=== PATIENT | female | born 1955 | race Caucasian/White ===

== ENCOUNTER 2021-02-23 11:25 | Outpatient (REF) | payer OTHER, SELFPAY | END 2021-02-23 11:26 | disposition home or self-care (01) | LOC: HO.LAB 11:25 | PROVIDERS: Visit Provider Internal Medicine | DX: Z20.822 Contact with and (suspected) exposure to COVID-19 (principal) | CPT/HCPCS: C9803; U0003; U0005 ==

== ENCOUNTER 2022-09-07 15:27 | Outpatient (REF) | payer OTHER, SELFPAY ==
[2022-09-07 17:41] LABS: Vitamin B12 682 pg/mL (200-900)
== END 2022-09-07 15:28 | disposition home or self-care (01) ==
LOC: HO.LAB 15:27
PROVIDERS: Visit Provider Psychiatry & Neurology Neurology
DX: G31.84 Mild cognitive impairment of uncertain or unknown etiology (principal)
CPT/HCPCS: 36415; 82607

== ENCOUNTER 2025-04-07 09:06 | Outpatient (AMB) | payer OTHER, SELFPAY ==
[2025-04-07 09:13] VITALS: BMI 37.2
--- NOTE | 2025-04-07 09:13 | A.OFFVIS_ITS ---
VS Expanded 04/07/25 09:13 04/14/25 18:25 Height 5 ft 6 in 5 ft 6 in Weight 230 lb 9.656 oz 231 lb BMI 37.2 37.3 Intake Visit Reasons: Obesity Medication List - Last Reconciled 04/14/[address], LDN amlodipine 2.5 mg PO DAILY atorvastatin (Lipitor) 20 mg PO DAILY Nutrition Presentation Details: Pt presents for MNT for obesity with hx of predm Pt admits to choosing unhealthy foods , + soda no meal routine Pt verbalizes desires to improve diet Reports taking a daily MVI ABQ-Vmrbagh-Qr.Jeor Equation Height: 5 ft 6 in Weight: 231 lb Resting Metabolic Rate: 1579.26 Calculated Activity Level: Sedentary Calories Needed to Maintain Weight: 1895.11 Diagnosis As related to (etiology) #1: diagnosis As evidenced by (sign/symptom) #1: high BMI [facility] Medical History (Updated 04/14/25 @ 18:[address], LDN) Prediabetes Microhematuria Mild intermittent asthma Obstructive sleep apnea Osteopenia Assessment & Plan Assessment & Plan (1) Obesity (BMI 30-39.9): Code(s): E66.9 - Obesity, unspecified Category: Medical Plan: current wt: 105 kg ( 04/04 ) est kcal needs as per MSJ: 1900 est protein needs as per 1 g/kg BW: 105 est fluid needs as per 30 ml/kg BW: 3200 Recommended fiber > 12 g /day and gradually increase up to 25-28 g /day or as tolerated Nutrition topics discussed : Reviewed (R), Pt verbalized understanding (V) , not applicable (N/A) R, : Healthy Plate Method Concept: R, V, N/A: Carbohydrates: food sources of carbohydrates, relationship of carbohydrates to blood glucose, fatty liver GI health. Recommended total amount of carbohydrates per meals and snack. Differences between simple carbohydrates and complex carbohydrates R, V, N/A: Lean protein foods including vegan , vegetarian sources of protein. Benefits of protein (including but not limited to healing, nutritional value , benefits in weight loss, glucose control R, V, N/A: Fats : Source of fats, benefits of fats. Difference between saturated and unsaturated fats. Saturated fats and its contribution to inflammation R, V, N/A: Fiber: food sources and role of fiber in the diet (including but not limited to its role as a prebiotic, benefits in constipation, role in IBS , role in glucose control and cholesterol level) R, V, N/A: Hydration: role of hydration and prevention of dehydration or over hydration. Foods and water content. R, V, N/A: Vitamins and Minerals in foods and supplements R, V, N/A: Interpreting food labels, including serving size, macronutrients, vitamins, minerals, allergens, ingredient list , % daily value Patient Instructions: Gradually reduce on sugary beverages (see list of options of low sugar beverages) work on having 3 meals/day - see meals consisting of 60 g carb following healthy plate method Coding Level of Care Code Nutr Indiv Intake (08552) Diagnoses Obesity (BMI 30-39.9) E66.9 Time Spent (min) 30
--- OUTSIDE RECORDS SUMMARY | 2025-04-07 10:09 | XMS_ITS ---
Author Name [facility] Organization Unknown History of Medication Use Medication Directions Dispensed Refills Start Date End Date Stat us albuterol HFA (PROAIR HFA ; PROVENTIL HFA ; VENTOLIN HFA) 90 mcg/actuation inhaler Inhale 2 puffs by mouth 4 (four) times a day. 04/24/2024 active predniSONE (DELTASONE) 20 mg tablet Take 60 mg PO daily for 3 days, then take 40 mg PO daily for 3 days, then 20 mg PO daily for 3 days, then stop 04/24/2024 active acetaminophen (TYLENOL 8 HOUR) 650 mg 8 hr tablet Take 1 tablet (650 mg total) by mouth every 8 (eight) hours if needed. 12/25/2023 active ciprofloxacin (CIPRO) 500 MG tablet Take 1 tablet (500 mg total) by mouth 2 (two) times a day. 10/03/2023 active nitrofurantoin, macrocrystal-monohydr ate, (MACROBID) 100 MG capsule Take 1 capsule (100 mg total) by mouth 2 (two) times a day for 7 days. 09/27/2023 10/05/2023 active amLODIPine (NORVASC) 2.5 mg tablet Take 1 tablet (2.5 mg total) by mouth 1 (one) time each day. 08/31/2023 active atorvastatin (LIPITOR) 20 mg tablet Take 1 tablet (20 mg total) by mouth 1 (one) time each day. 08/31/2023 active PARoxetine (PAXIL) 20 mg tablet Take 1 tablet (20 mg total) by mouth 1 (one) time each day in the morning. 08/31/2023 active cyanocobalamin (VITAMIN B-12) 1,000 mcg tablet Take 1 tablet (1,000 mcg total) by mouth 1 (one) time each day. 06/27/2023 active erythromycin-benzoyl peroxide (BENZAMYCIN) gel Apply sparingly once or twice daily to affected areas on face as needed 03/14/2023 active tiZANidine (ZANAFLEX) 4 mg tablet Take by mouth. Take 1 Tablet by mouth at bedtime as needed for Muscle spasms active UNABLE TO FIND Administer into affected nostril(s). active Allergies Allergen Reaction Severity Comment Documented Date Source Statu s TRAMADOL ITCHING 10/12/2023 [facility] active Problems Problem Status Onset Date Problem Type Date of Resolution Source Urinary tract infection with hematuria, site unspecified active EncounterDiagnosisAct CTTHNE MG Retention of urine active EncounterDiagnosisAct CTTHNEMG Post-operative state active EncounterDiagnosisA ct CTTHNEMG Prediabetes active 2022-06-15 ProblemAct CT_THS ALYCIA Frequent UTI active 2022-04-27 ProblemAct [facility]_TH SFRAN Anxiety active 2023-11-07 ProblemAct [facility]_THSFR AN Mild intermittent asthma without complication active 2015-08-03 ProblemAct [facility]SFR[facility] Osteopenia active 2023-03-22 ProblemAct [facility]_THSF RAN Benign head tremor active 2019-07-03 ProblemAct [facility] Dermatochalasis of both upper eyelids active 2019-03-10 ProblemAct [facility]_THSFRA N Encounter for screening mammogram for breast cancer active EncounterDiagnosisAct C T_THSFRAN Heartburn active 2023-11-07 ProblemAct [facility]_THSFR AN Obesity (BMI 30.0-34.9) active 2017-05-28 ProblemAct [facility] Intertrigo active 2017-05-28 ProblemAct [facility]_THSF RAN GERD (gastroesophageal reflux disease) active 2007-07-16 ProblemAct [facility] Facial rhytids active 2019-03-10 ProblemAct [facility]_ THSFRAN Mass of right axilla active 2022-04-27 ProblemAct [facility]SFRAN Obstructive sleep apnea syndrome active 2017-12-27 ProblemAct [facility]_THS[facility]AN Microhematuria active 2011-04-25 ProblemAct [facility]_ THSFRAN Facial aging active 2019-03-12 ProblemAct [facility]_TH SFRAN Fear of high places active 2008-06-30 ProblemAct [facility]_THSFRAN Depression active 2009-04-13 ProblemAct [facility]_THSF RAN Macromastia active 2017-05-28 ProblemAct CT_THS ALYCIA Hypertension active 2023-11-07 ProblemAct [facility]_TH SFRAN Morbid obesity active 2023-11-07 ProblemAct [facility]_ THSFRAN History of COVID-19 active 2021-11-10 ProblemAct [facility]_THSFRAN Urinary incontinence, mixed active 2011-04-22 ProblemAct [facility]_SFRAN Ureterolithiasis active 2019-08-29 ProblemAct C T_THSFRAN Immunizations Vaccine Date Source Lot Number Status Influenza trivalent, 0.5mL ( Fluzone High-dose) 65yo and older 03/14/2023 [facility]_SFRAN [id number] comple amish Pneumococcal polysaccharide 23 valent (Pneumovax 23) 2yo and older 09/12/2022 [facility]ileyFRTAMIE [id number] com pleted Influenza Quadravalent, MDCK , 0.5ml, preservative free (Flucelvax) 6mo and older 06/14/2022 [facility]_BaileyFRTAMIE [id number] completed Influenza trivalent, 0.5mL ( Fluzone High-dose) 65yo and older 03/21/2021 CT_BaileyFRAN [id number] comple amish Influenza trivalent, 0.5mL ( Fluzone High-dose) 65yo and older 03/19/2020 [facility]ileyFRTAMIE [id number] comple amish Influenza trivalent, 0.5mL ( Fluzone High-dose) 65yo and older 03/28/2019 [facility]ileyFRTAM[facility] [id number] comple amish Pneumococcal conjugate 13 va lent (Prevnar 13, PCV13) 2mo and older 10/24/2018 [facility]_SIVA [id number] complet ed Td Tetanus diptheria (Tdvax) 7yo and older 04/03/2018 CT_T HSFRAN [id number] completed Influenza Quadravalent, MDCK , 0.5ml, with preservative (Flucelvax) 6mo and older 02/19/2018 [facility]_BaileyFRAN [id number] completed Influenza trivalent, with pr eservative (Fluzone; Afluria) 6mo and older 06/29/2016 [facility]ileyFRTAM[facility] [id number] completed Influenza trivalent, with pr eservative (Fluzone; Afluria) 6mo and older 04/12/2015 [facility]_S[facility] [id number] completed Influenza trivalent, with pr eservative (Fluzone; Afluria) 6mo and older 03/27/2014 [facility] [id number] completed Influenza trivalent, with pr eservative (Fluzone; Afluria) 6mo and older 07/03/2013 [facility] [id number] completed Influenza trivalent, 0.5mL, preservative free (Fluarix; FluLaval; Fluzone) ages 6mo and older (Afluria) 3 years and older 07/02/2012 [facility] [id number] completed Influenza trivalent, with pr eservative (Fluzone; Afluria) 6mo and older 06/16/2010 [facility] [id number] completed Pneumococcal polysaccharide 23 valent (Pneumovax 23) 2yo and older 06/16/2010 [facility]_S[facility]A [id number] com pleted Tdap Tetanus diptheria acell ular pertussis (Boostrix; Adacel) 7yo and older 04/09/2008 [facility] [id number] completed Influenza trivalent, with pr eservative (Fluzone; Afluria) 6mo and older 03/03/2008 [facility] [id number] completed
--- OUTSIDE RECORDS SUMMARY | 2025-04-07 10:09 | XMS_ITS | Clinical Summary ---
Author Organization [facility] [address] [place] [address] Address [address] [place] [address] Phone Care Team Providers Care Senior Catering Sales Manager Name Role Phone Geni Arreola MD Primary Care Prov ider Allergies Active Allergy Reactions Criticality Noted Date Comments Tramadol Itching Low 10/12/2023 Medications UNABLE TO FIND Administer into affected nostril(s). Active albuterol HFA (PROAIR HFA ; PROVENTIL HFA ; VENTOLIN HFA) 90 mcg/actuation inhaler Inhale 2 puffs by mouth 4 (four) times a day. 8.5 g 1 4 Active estradioL (ESTRACE) 0.01 % (0.1 mg/gram) vaginal creamIndications :atrophic vaginitis associated with menopause Apply a pea-sized amount of cream with the applicator into the vaginal canal every night for 2 weeks, then twice a week thereafter. 42.5 g 5 5 Active budesonide-formo teroL (Symbicort) 160-4.5 mcg/actuation inhalerIndicatio ns:Moderate persistent asthma, unspecified whether complicated Inhale 2 puffs by mouth 2 (two) times a day. Rinse mouth with water after use to reduce aftertaste and incidence of candidiasis. Do not swallow. 3 each 3 5 09/13/19 26 Active scopolamine (TRANSDERM-SCOP) 1 mg over 3 days patch 3 day Apply 1 patch topically every 3rd (third) day if needed (nausea). 6 patch 1 5 Active ibuprofen (ADVIL,MOTRIN) 600 mg tablet Take 1 tablet (600 mg total) by mouth every 8 (eight) hours if needed for mild pain. 45 tablet 5 Active cyclobenzaprine (FLEXERIL) 5 mg tablet Take 1 tablet (5 mg total) by mouth 3 (three) times a day if needed for muscle spasms. 30 tablet 5 Active erythromycin-tasia zoyl peroxide (BENZAMYCIN) gel Apply topically 2 (two) times a day. 23.3 g 3 5 Active amLODIPine (NORVASC) 2.5 mg tablet Take 1 tablet (2.5 mg total) by mouth 1 (one) time each day. 90 tablet 1 5 08/13/19 26 Active atorvastatin (LIPITOR) 20 mg tablet Take 1 tablet (20 mg total) by mouth 1 (one) time each day. 90 tablet 1 5 Active PARoxetine (PAXIL) 30 mg tablet Take 1 tablet (30 mg total) by mouth 1 (one) time each day in the morning. 90 each 1 5 08/13/19 26 Active tirzepatide, weight loss, (Zepbound) 2.5 mg/0.5 mL solutionIndicati ons:Obesity (BMI 30-39.9),Obstruc tive sleep apnea syndrome,Essenti al hypertension, benign,Mixed hyperlipidemia,P rediabetes Inject 2.5 mg under the skin 1 (one) time per week. 2 mL 1 5 Active Active Problems Problem Noted Date Diagnosed Date Anxiety 11/07/2023 Heartburn 11/07/2023 Hypertension 11/07/2023 Morbid obesity (CMS/HCC V24, CMS/HCC V28) 2023 Assessment & Plan (03/25/2025 10:48 AM EDT): BMI 37.6, with multiple comorbidities, HTN, HLD, DARRION, prediabetes. Attempts to lose weight previously have proven some success but weight was regained. Her diet reflects high calorie dense foods along the day. We discussed about the obesity as a chronic condition that needs multifactorial management. Medications will be needed half-way. Patient understands this. Will place a referral for nutrition services and for support. A prescription was sent for Zepbound 2.5mg weekly. Possible side effects were discussed today. Will follow up one month after starting the medication. Orders: Ambulatory referral to Nutrition Services; Future Ambulatory referral to Talkiatry; Future tirzepatide, weight loss, (Zepbound) 2.5 mg/0.5 mL solution; Inject 2.5 mg under the skin 1 (one) time per week. Osteopenia 03/22/2023 Prediabetes 06/15/2022 Assessment & Plan (03/27/2025 9:01 PM EDT): Last A1C: 6. Glucose 102. Orders: tirzepatide, weight loss, (Zepbound) 2.5 mg/0.5 mL solution; Inject 2.5 mg under the skin 1 (one) time per week. Frequent UTI 04/27/2022 Overview (03/21/2024): Last Assessment & Plan: Referred to Urology. She was informed that she should hear back in 1-2 weeks with an appointment date. If not, she should call back to our office and inquire on getting this arranged. She voiced understanding and agreed. Mass of right axilla 04/27/2022 Overview (03/21/2024): Last Assessment & Plan: Referred to G Surgery. She was informed that she should hear back in 1-2 weeks with an appointment date. If not, she should call back to our office and inquire on getting this arranged. She voiced understanding and agreed. History of COVID-19 11/10/2021 Overview (03/21/2024): DX PCR Test 11/07/21 Ureterolithiasis 08/29/2019 Overview (03/21/2024): 08/2019 - R distal ureteral calculus causing hydronephrosis Benign head tremor 07/03/2019 Facial aging 03/12/2019 Dermatochalasis of both upper eyelids 03/10/2019 Facial rhytids 03/10/2019 Obstructive sleep apnea syndrome 12/27/2017 Assessment & Plan (03/27/2025 9:01 PM EDT): DARRION on a CPAP. Will continue to monitor. Orders: tirzepatide, weight loss, (Zepbound) 2.5 mg/0.5 mL solution; Inject 2.5 mg under the skin 1 (one) time per week. Intertrigo 05/28/2017 Macromastia 05/28/2017 Obesity (BMI 30.0-34.9) 05/28/2017 Overview (03/21/2024): s/p gastric sleeve 01/21/18 Mild intermittent asthma without complication Microhematuria 04/25/2011 Urinary incontinence, mixed 04/22/2011 Overview (03/21/2024): [facility] Depression 04/13/2009 Fear of high places 06/30/2008 Essential hypertension, benign 07/16/2007 Assessment & Plan (03/27/2025 9:01 PM EDT): Hypertension is well-controlled on Amlodipine, will continue same medication. Orders: tirzepatide, weight loss, (Zepbound) 2.5 mg/0.5 mL solution; Inject 2.5 mg under the skin 1 (one) time per week. Assessment & Plan (02/15/2025 11:22 AM EDT): HTN is well controlled on Amlodipine. Continue same medication. Statin for ASCVD risk control GERD (gastroesophageal reflux disease) 8 Overview (03/21/2024): Saw Dr Hailey cash neg EGD and colo Encounters Date Type Department Care Team Description 04/03/2025 Telephone Adult Medicine [address] [phone] Geni Montes MD 03/25/2025 10:00 AM EDT Office Visit Adult Medicine [address] [phone] Geni Montes MD Obesity (BMI 30-39.9) (Primary Dx); Obstructive sleep apnea syndrome; Essential hypertension, benign; Mixed hyperlipidemia; Prediabetes; Metabolic syndrome; Need for prophylactic vaccination and inoculation against influenza 02/18/2025 Telephone Adult Medicine [address] [phone] Geni Montes MD 02/13/2025 2:00 PM EDT Office Visit Adult [address] [phone] Geni Montes MD Adult general medical examination (Primary Dx); Encounter for screening mammogram for malignant neoplasm of breast; Encounter for lipid screening for cardiovascular disease; Screen for colon cancer; Essential hypertension, benign from Last 3 Months Immunizations Immunization Administration Dates Next Due Influenza Quadravalent, MDCK , 0.5ml, preservative free (Flucelvax) 6mo and older 06/14/2022 Influenza Quadravalent, MDCK , 0.5ml, with preservative (Flucelvax) 6mo and older 02/19/2018 Influenza trivalent, 0.5mL ( Fluad) 65yo and older 03/25/2025 Influenza trivalent, 0.5mL ( Fluzone High-dose) 65yo and older 03/14/2023,03/21/2021,03/19/2020,03/28 Influenza trivalent, 0.5mL, preservative free (Fluarix; FluLaval; Fluzone) ages 6mo and older (Afluria) 3 years and older 07/02/2012 Influenza trivalent, with pr eservative (Fluzone; Afluria) 6mo and older 06/29/2016,04/12/2015,03/27/2014,07/03,06/16/2010,03/03/2008 Pneumococcal conjugate 13 va lent (Prevnar 13, PCV13) 2mo and older 10/24/2018 Pneumococcal polysaccharide 23 valent (Pneumovax 23) 2yo and older 09/12/2022,06/16/2010 Td Tetanus diptheria (Tdvax) 7yo and older 04/03/2018 Tdap Tetanus diptheria acell ular pertussis (Boostrix; Adacel) 7yo and older 04/09/2008 Surgical History Surgery Date Site/Laterality Comments OTHER SURGICAL HISTORY 2006 PROCEDURE: HISTORICAL CA BASAL CELL CHOLECYSTECTOMY 2005 PROCEDURE: HISTORICAL CHOLECYSTECTOMY ESOPHAGOGASTRODUODENOSCOPY 05/30/2007 PROCEDURE: MI EGD TRANSORAL BIOPSY SINGLE/MULTIPLE; COMMENT: Dr Elaine - even erosive esophagitis, gastritis, duodenitis. No H. pylori. COLONOSCOPY 05/30/2007 PROCEDURE: HISTORICAL COLONOSCOPY; COMMENT: Dr Elaine - numerous small erosions of the sigmoid colon; biopsy reveals normal colonic mucosa with focal active colitis. BARIATRIC SURGERY 01/21/2018 PROCEDURE: MI LAPS GSTRC RSTRICTIV PX LONGITUDINAL GASTRECTOMY; COMMENT: Dr. Long, [facility] BREAST SURGERY PROCEDURE: MI UNLISTED PROCEDURE BREAST; COMMENT: b/l reduction 2018 Medical History Medical History Date Comments Historical Medical DX DX:Other a nd unspecified malignant neoplasm of skin of other and unspecified parts of face Depressive disorder, not els ewhere classified 04/13/2009 DX:Depressive disorder, not elsewhere classified Esophageal reflux DX:Esophageal reflux Heart disease, unspecified DX:He art disease, unspecified Unspecified essential hypertension DX:Unspecified essential hypertension Basal cell carcinoma of skin 09/19/2007 DX: Basal cell carcinoma of skin; COMMENT: BCC 11/12 Nose (nodular), 2013 Essential hypertension, benign 07/16/2007 D X:Essential hypertension, benign Fear of high places 06/30/2008 DX:Fear of h igh places GERD (gastroesophageal reflux disease) 07/16/2007 DX:GERD (gastroesophageal reflux disease); COMMENT: Saw Dr Elaine- had neg EGD and colo Microhematuria 04/25/2011 DX:Microhematuri a Sleep apnea 08/15/2010 DX:Sleep apnea Urinary incontinence, mixed 04/22/2011 DX:U rinary incontinence, mixed History of other specified c onditions presenting hazards to health DX:History of other speci fied conditions presenting hazards to health; COMMENT: skin History of basal cell carcinoma 09/19/2007 DX:History of basal cell carcinoma; COMMENT: BCC 11/12 Nose (nodular), 2013 Family History Medical History Relation Name Comments Hypertension Brother 1 Prostate cancer Brother 2 x2 Cataracts Father Diabetes Father Heart attack Father Stroke Father Blindness Maternal Grandmother Emphysema Mother Hypertension Mother Other: ULCER Mother Osteoporosis Mother's side mother, grandm other Breast cancer Other 1 p aunt 70s Breast cancer Other 2 m cousin 20s Hypertension Sister Colon cancer Neg Hx Glaucoma Neg Hx Macular degeneration Neg Hx Ovarian cancer Neg Hx Pancreatic cancer Neg Hx Prostate cancer Neg Hx Strabismus Neg Hx Uterine cancer Neg Hx Relation Name Status Comments Brother 1 Brother 2 Father Maternal Grandmother Mother Mother's side Other 1 p aunt 70s Other 2 m cousin 20s Sister Social History Tobacco Use Types Packs/Day Years Used Date Smoking Tobacco: Never Smokeless Tobacco: Never Tobacco Cessation:Counseling Given: Not Answered Alcohol Use Standard Drinks/Week Comments Yes 0 (1 standard drink = 0.6 oz pur e alcohol) Housing Instability Answer Date Recorde d Are you worried that in the next 2 months you may not have stable housing? No 06/24/2024 Food Access & Nutrition Answer Date Rec orded Do you have access to a vari ety of food including fruits and vegetables? Yes 06/24/2024 Access to Healthcare Answer Date Record ed Within the last 3 months, ho w many times did you visit the emergency department for your medical care? 0 06/24/2024 Health Literacy Answer Date Recorded How often do you need to hav e someone help you when you read instructions, pamphlets, or other written material from your doctor or pharmacy? Never 06/24/2024 Caregiver: How often do you need to have someone help you when you read instructions, pamphlets, or other written material from your doctor or pharmacy? Not on file 06/24/2024 Financial Risk Answer Date Recorded How hard is it for you to pa y for the very basics like food, housing, medical care, and air conditioning / heating? Not very hard 06/24/2024 Transportation Answer Date Recorded Has the lack of transportati on kept you from meetings, work, or from getting things needed for daily living? No Has the lack of transportati on kept you from medical appointments or from getting medications? No 06/24/2024 Social Isolation Answer Date Recorded How often do you feel lonely or isolated from th ose around you? Never 06/24/2024 Food Risk Answer Date Recorded Within the past 12 months we worried whether our food would run out before we got money to buy more. Never true 06/24/2024 Within the past 12 months th e food we bought just didn't last and we didn't have money to get more. Never true 06/24/2024 Dependent Care Answer Date Recorded Do you need help finding or paying for care for your loved ones. For example, children's literature professor or elderly care for an older adult? No 06/24/2024 Education Answer Date Recorded Do you think completing more education or training, like finishing a GED, going to college, or learning a trade, would be helpful for you? No 06/24/2024 Employment and Income Answer Date Recor ded During the last four weeks, have you been actively looking for work? No 06/24/2024 Living Situation Answer Date Recorded What is your living situation? Unrecognized valu e 06/24/2024 Comments No Sex and Gender Information Value Date Recorded Sex Assigned at Not on file Legal Sex Female 1:04 PM EST Gender Identity Not on file Sexual Orientation Not on file Obstetrics History Para Term AB IAB SAB Ectopic Multiple Livin g Live Births 0 0 0 0 0 0 0 0 Last Filed Vital Signs Vital Sign Reading Time Taken Comments Blood Pressure 126/73 03/25/2025 9:56 AM EDT Pulse 71 03/25/2025 9:56 AM EDT Temperature 36.1 C (97 F) 03/25/2025 9:56 AM EDT Respiratory Rate 14 03/25/2025 9:56 AM EDT Oxygen Saturation 96% 03/25/2025 9:56 AM EDT Inhaled Oxygen Concentration - - Weight 106 kg (233 lb) 03/25/2025 9:56 AM EDT Height 167.6 cm (5' 6 ) 03/25/2025 9:56 AM EDT Body Mass Index 37.61 03/25/2025 9:56 AM EDT Plan of Treatment Upcoming Encounters Date Type Department Care Team (Late st Contact Info) Description 08/05/2025 11:45 AM EST Office Visit Urogynecology [address] [phone] Rosalinda Torrez MD [address] [place] [address] [address] [place] [address] Health Maintenance Due Date Last Done Comments Zoster Vaccines (1 of 2) 1972 RSV Immunization Adult Patients (1 - Risk 50-74 years 1-dose series) 2003 Colorectal Cancer Screening: FIT-DNA (Cologuard) 05/20/2022 Breast Cancer Screening 01/17/2024 01/17/20, 01/11/2021, 06/07/2017 COVID-19 Vaccine ( season) 2025 04/15/2021, 09/22/2020, 08/31/2020 Falls Risk Assessment 06/24/2025 06/24/2024 Social Influencers of Health Screening 06/24/2025 06/24/2024 Hypertension/CHF/CAD Annual BMP Blood Test 02/17/2026 02/17/2025, 09/05/2023 DTaP,Tdap,and Td Vaccines (3 - Td or Tdap) 04/03/2028 04/03/2018, 04/09/2008 Cholesterol Screening (Lipid Panel) 02/17/2030 02/17/2025, 09/05/2023 Osteoporosis Screening (Bone Density Screening) 03/21/2033 03/21/2023 Hepatitis C Screening Completed 06/26/2014 Pneumococcal Vaccine: 50+ Years Completed 09/12/2022, 10/24/2018, 06/16/2010 Depression Screening Completed 06/24/2024 Influenza Vaccine Completed 03/25/2025, , 06/14/2022, Additional history exists HIB Vaccines Aged Out No longer eligi ble based on patient's age to complete this topic HPV Vaccines Aged Out No longer eligi ble based on patient's age to complete this topic Hepatitis A Vaccines Aged Out No long er eligible based on patient's age to complete this topic Hepatitis B Vaccines Aged Out No long er eligible based on patient's age to complete this topic IPV Vaccines Aged Out No longer eligi ble based on patient's age to complete this topic MMR Vaccines Aged Out No longer eligi ble based on patient's age to complete this topic Meningococcal ACWY Vaccine Aged Out N o longer eligible based on patient's age to complete this topic Meningococcal B Vaccine Aged Out No l onger eligible based on patient's age to complete this topic RSV Immunization Patients Under 20 months Aged Out No longer eligible based on patient's age to complete this topic Varicella Vaccines Aged Out No longer eligible based on patient's age to complete this topic Procedures Procedure Name Priority Date/Time Associated Diagnosis Comments CBC WITH AUTO DIFFERENTIAL Routine 02/17/2025 10:55 AM EDT Adult general medical examination CBC AND DIFFERENTIAL Routine 02/17/2025 10:55 AM EDT Adult general medical examination COMPREHENSIVE METABOLIC PANEL Routine 02/17/2025 10:55 AM EDT Adult general medical examination LIPID PANEL WITH REFLEX TO DIRECT LDL Routine 02/17/2025 10:55 AM EDT Encounter for lipid screening for cardiovascular disease THYROID STIMULATING HORMONE WITH REFLEX TO FREE T4 AND FREE T3 Routine 02/17/2025 10:55 AM EDT Adult general medical examination VITAMIN B12 Routine 02/17/2025 10:55 AM EDT Adult general medical examination DXA BONE DENSITY STUDY 1+ SITS AXIAL SKEL Routine 03/21/2023 12:19 PM EDT Asymptomatic menopausal state SCREENING MAMMOGRAPHY BI 2-VIEW BREAST INC CAD Routine 01/16/2022 11:47 AM EDT Encounter for other screening for malignant neoplasm of breast HEPATITIS C SCREENING Routine 06/26/2014 from Last 3 Months or Most Recently Relevant to Health Maintenance Results * Thyroid stimulating hormone with reflex to free t4 and free t3 (02/17/2025 10:55 AM EDT) TSH 1.65 0.40 - 4.00 mcIU/mL LAB CHEMISTRY METHOD 02/17/2025 4:15 PM EDT [facility] Blood Venous blood specimen / Unknown Venipuncture / Unknown 02/17/2025 10:55 AM EDT 02/17/2025 10:55 AM EDT us Geni Arreola MD LAB BLOOD ORDERABL ES Final Result [facility] [address] [place] [address], [place] [phone] * (ABNORMAL) Lipid panel with reflex to direct LDL (02/17/2025 10:55 AM EDT) Cholesterol 225(H) 0 - 200 mg/dL LAB CHEMISTRY METHOD 02/17/2025 3:17 PM EDT [facility] Triglycerides 114 0 - 150 mg/dL LAB CHEMISTRY METHOD 02/17/2025 3:17 PM EDT [facility] HDL 65 >=40 mg/dL LAB CHEMISTRY METHOD 02/17/2025 3:17 PM EDT [facility] LDL Calculated 137(H) 0 - 100 mg/dL LAB CHEMISTRY METHOD 02/17/2025 3:17 PM EDT [facility] Comment:Estimated LDL Calcul ated using equation: Total cholesterol - HDL cholesterol - (Triglycerides/5) VLDL Cholesterol Siva 22.8 mg/dL LAB CHEMISTRY METHOD 02/17/2025 3:17 PM EDT [facility] Non HDL Chol. (LDL+VLDL) 160(H) <145 mg/dL LAB CHEMISTRY METHOD 02/17/2025 3:17 PM EDT [facility] Chol/HDL Ratio 3.5 0.0 - 4.4 LAB CHEMISTRY METHOD 02/17/2025 3:17 PM EDT [facility] Blood Venous blood specimen / Unknown Venipuncture / Unknown 02/17/2025 10:55 AM EDT 02/17/2025 10:55 AM EDT us Geni Arreola MD LAB BLOOD ORDERABL ES Final Result [facility] [address] [place] [address], * (ABNORMAL) CBC auto differential (02/17/2025 10:55 AM EDT) [facility] WBC 7.6 4.8 - 10.8 K/mcL LAB HEMETOLOGY METHOD 02/17/2025 12:22 PM [facility] RBC 4.90(H) 3.80 - 4.80 M/mcL LAB HEMETOLOGY METHOD 02/17/2025 12:22 PM [facility] Hemoglobin 14.7 11.5 - 16.0 g/dL LAB HEMETOLOGY METHOD 02/17/2025 12:22 PM [facility] Hematocrit 43.9 35.0 - 47.0 % LAB HEMETOLOGY METHOD 02/17/2025 12:22 PM [facility] MCV 90.0 79.0 - 98.0 FL LAB HEMETOLOGY METHOD 02/17/2025 12:22 PM [facility] MCH 30.1 27.0 - 32.0 pcg LAB HEMETOLOGY METHOD 02/17/2025 12:22 PM [facility] MCHC 33.5 32.0 - 37.0 g/dL LAB HEMETOLOGY METHOD 02/17/2025 12:22 PM [facility] RDW 13.0 11.0 - 15.0 % LAB HEMETOLOGY METHOD 02/17/2025 12:22 PM [facility] Platelets 332 130 - 400 K/mcL LAB HEMETOLOGY METHOD 02/17/2025 12:22 PM [facility] MPV 10.0 7.0 - 11.0 FL LAB HEMETOLOGY METHOD 02/17/2025 12:22 PM [facility] NRBC 0.0 <1.0 % LAB HEMETOLOGY METHOD 02/17/2025 12:22 PM [facility] NRBC Absolute 0.00 <0.10 K/mcL LAB HEMETOLOGY METHOD 02/17/2025 12:22 PM EDT [facility] Neutrophils Relative 51.5 % LAB HEMETOLOGY METHOD 02/17/2025 12:22 PM [facility] Lymphocytes Relative 38.3 % LAB HEMETOLOGY METHOD 02/17/2025 12:22 PM [facility] Monocytes Relative 7.0 % LAB HEMETOLOGY METHOD 02/17/2025 12:22 PM [facility] Eosinophils Relative 2.4 % LAB HEMETOLOGY METHOD 02/17/2025 12:22 PM [facility] Basophils Relative 0.7 % LAB HEMETOLOGY METHOD 02/17/2025 12:22 PM [facility] Immature Granulocytes Relative 0.1 % LAB HEMETOLOGY METHOD 02/17/2025 12:22 PM [facility] Neutrophils Absolute 3.89 1.50 - 7.00 K/mcL LAB HEMETOLOGY METHOD 02/17/2025 12:22 PM [facility] Lymphocytes Absolute 2.89 1.00 - 5.00 K/mcL LAB HEMETOLOGY METHOD 02/17/2025 12:22 PM [facility] Monocytes Absolute 0.53 0.20 - 1.00 K/mcL LAB HEMETOLOGY METHOD 02/17/2025 12:22 PM [facility] Eosinophils Absolute 0.18 0.00 - 0.50 K/mcL LAB HEMETOLOGY METHOD 02/17/2025 12:22 PM [facility] Basophils Absolute 0.05 0.00 - 0.20 K/mcL LAB HEMETOLOGY METHOD 02/17/2025 12:22 PM [facility] Immature Granulocytes Absolute 0.01 0.00 - 0.03 K/mcL LAB HEMETOLOGY METHOD 02/17/2025 12:22 PM EDT [facility] Blood Venous blood specimen / Unknown Venipuncture / Unknown 02/17/2025 10:55 AM EDT 02/17/2025 10:55 AM EDT Geni Arreola MD LAB BLOOD ORDERABL ES Final Result Performing Organization Address City/[facility]/ZIP Co de Phone Number [facility] [address] [place] [address], [place] [phone] * Vitamin B12 (02/17/2025 10:55 AM EDT) [facility] Vitamin B-12 504 250 - 900 pcg/mL LAB CHEMISTRY METHOD 02/17/2025 6:06 PM EDT [facility] Blood Venous blood specimen / Unknown Venipuncture / Unknown 02/17/2025 10:55 AM EDT 02/17/2025 10:55 AM EDT Geni Arreola MD LAB BLOOD ORDERABL ES Final Result Performing Organization Address [facility]/ZIP Co de Phone Number [facility] [address] [place] [address], [place] [phone] * (ABNORMAL) Comprehensive metabolic panel (02/17/2025 10:55 AM EDT) [facility] Sodium 139 133 - 145 mmol/L LAB CHEMISTRY METHOD 02/17/2025 3:17 PM EDT [facility] Potassium 3.9 3.5 - 5.5 mmol/L LAB CHEMISTRY METHOD 02/17/2025 3:17 PM EDT [facility] Chloride 106 96 - 110 mmol/L LAB CHEMISTRY METHOD 02/17/2025 3:17 PM EDT [facility] CO2 30 21 - 32 mmol/L LAB CHEMISTRY METHOD 02/17/2025 3:17 PM EDT [facility] Anion Gap 3 3 - 11 LAB CHEMISTRY METHOD 02/17/2025 3:17 PM [facility] Glucose 102(H) 70 - 100 mg/dL LAB CHEMISTRY METHOD 02/17/2025 3:17 PM [facility] BUN 13 5 - 25 mg/dL LAB CHEMISTRY METHOD 02/17/2025 3:17 PM [facility] Creatinine 1.05 0.50 - 1.10 mg/dL LAB CHEMISTRY METHOD 02/17/2025 3:17 PM [facility] eGFR 57(L) >=60 mL/min/1. 73m2 LAB CHEMISTRY METHOD 02/17/2025 3:17 PM [facility] Comment:Calculation based on the Chronic Kidney Disease Epidemiology Collaboration (CKD-EPI) equation refit without adjustment for race. BUN/Creatinine Ratio 12.4 LAB CHEMISTRY METHOD 02/17/2025 3:17 PM [facility] Calcium 10.4 8.5 - 10.5 mg/dL LAB CHEMISTRY METHOD 02/17/2025 3:17 PM [facility] AST (SGOT) 20 10 - 42 unit/L LAB CHEMISTRY METHOD 02/17/2025 3:17 PM [facility] ALT (SGPT) 21 10 - 60 unit/L LAB CHEMISTRY METHOD 02/17/2025 3:17 PM [facility] Alkaline Phosphatase 112 42 - 121 unit/L LAB CHEMISTRY METHOD 02/17/2025 3:17 PM [facility] Total Protein 7.4 6.0 - 8.0 g/dL LAB CHEMISTRY METHOD 02/17/2025 3:17 PM [facility] Albumin 3.5 3.2 - 5.0 g/dL LAB CHEMISTRY METHOD 02/17/2025 3:17 PM [facility] Total Bilirubin 0.5 0.0 - 1.4 mg/dL LAB CHEMISTRY METHOD 02/17/2025 3:17 PM EDT [facility] Blood Venous blood specimen / Unknown Venipuncture / Unknown 02/17/2025 10:55 AM EDT 02/17/2025 10:55 AM EDT us Geni Arreola MD LAB BLOOD ORDERABL ES Final Result [facility] ([facility]) [facility] [address] [place] [address], * DXA BONE DENSITY STUDY 1+ SITS AXIAL SKEL (03/21/2023 12:19 PM EDT) Anatomical Region Laterality Modality Bone Densitometr y 09/12/2022 11:3 6 AM EDT Narrative 03/21/2023 9:30 PM EDT STUDY: DUAL ENERGY X-RAY ABSORPTIOMETRY / DXA REASON FOR EXAM: Female, 68 years old. menopausal/postmenopausal disorder TECHNIQUE: Bone Mineral Density (BMD) measurements of the lumbar spine and left hip were obtained using [employer] Discovery W (S/N [id number]). COMPARISON: May 05, 2008 FINDINGS: L1-L4 BMD: 0.944 g/cm2 L1-L4 T score: -0.9. This corresponds to Normal bone density. This represents a -0.6 % decrease in bone density compared with prior exam from May 05, 2008. Left femoral neck BMD: 0.600 g/cm2 Left femoral neck T score: -2.2. This corresponds to osteopenia. Left total hip BMD: 0.878 g/cm2 Left total hip T score: -0.5. This corresponds to Normal bone density. This represents a -3.4 % decrease in bone density compared with prior exam from May 05, 2008. * - Indicates a statistically significant change. FRAX score: 10 year risk of major osteoporotic fracture 19%, 10 year risk of hip fracture 4.5% IMPRESSION: IMPRESSION: Osteopenia Reference Information: The T-score is the number of standard deviations above or below the standard which is normal for young adults at their peak bone mineral density. The World Health Organization (WHO) interprets the T-scores as follows: At or above -1 SD Normal bone density Between -1 and -2.5 SD Osteopenia At or below -2.5 SD Osteoporosis Procedure Note Deonte Franklin L - 07/16/2023 STUDY: DUAL ENERGY X-RAY ABSORPTIOMETRY / DXA REASON FOR EXAM: Female, 68 years old. menopausal/postmenopausaldisorder TECHNIQUE: Bone Mineral Density (BMD) measurements of the lumbar spineand left hip were obtained using [employer] Discovery W (S/N [id number]). COMPARISON: May 05, 2008 FINDINGS: L1-L4 BMD: 0.944 g/cm2 L1-L4 T score: -0.9. This corresponds to Normal bone density. This represents a -0.6 % decrease in bone density compared with prior examfrom May 05, 2008. Left femoral neck BMD: 0.600 g/cm2 Left femoral neck T score: -2.2. This corresponds to osteopenia. Left total hip BMD: 0.878 g/cm2 Left total hip T score: -0.5. This corresponds to Normal bone density. This represents a -3.4 % decrease in bone density compared with prior examfrom May 05, 2008. * - Indicates a statistically significant change. FRAX score: 10 year risk of major osteoporotic fracture 19%, 10 year riskof hip fracture 4.5% IMPRESSION: IMPRESSION: Osteopenia Reference Information: The T-score is the number of standard deviations above or below thestandard which is normal for young adults at their peak bone mineral density. The World HealthOrganization (WHO) interprets the T-scores as follows: At or above -1 SD Normal bone density Between -1 and -2.5 SD Osteopenia At or below -2.5 SD Osteoporosis Gela BAUMANN IMG DXA PROCEDURES Final Result * SCREENING MAMMOGRAPHY BI 2-VIEW BREAST INC CAD (01/16/2022 11:47 AM EDT) Anatomical Region Laterality Modality Radiographic Gertrudis ging 01/11/2021 3:35 PM EDT Narrative 01/16/2022 6:36 PM EDT This is a summary report. The complete report is available in the patient's medical record. If you cannot access the medical record, please contact the sending organization for a detailed fax or copy. Exam: Screening mammogram Findings: Digital bilateral full-field screening mammography is performed with tomosynthesis and interpreted with the aid of computer-aided detection. Comparison is made with 01/11/2021 and 06/07/2017. History of bilateral reduction mammoplasty. Breast parenchyma is composed of scattered fibroglandular densities. Stable bilateral postsurgical changes of reduction mammoplasty. No new suspicious mass, architectural distortion, or suspicious calcifications. Impression: No mammographic evidence of malignancy. BI-RADS 2-benign Procedure Note Destiny Anton MD - 05/30/2022 This is a summary report. The complete report is available in thepatient's medical record. If you cannot access the medical record, pleasecontact the sending organization for a detailed fax or copy. Exam: Screening mammogram Findings: Digital bilateral full-field screening mammography is performedwith tomosynthesis and interpreted with the aid of computer-aideddetection. Comparison is made with 01/11/2021 and 06/07/2017. History ofbilateral reduction mammoplasty. Breast parenchyma is composed of scattered fibroglandular densities.Stable bilateral postsurgical changes of reduction mammoplasty. No newsuspicious mass, architectural distortion, or suspicious calcifications. Impression: No mammographic evidence of malignancy. BI-RADS 2-benign Dionicio BAUMANN IMG XR PROCEDURES Final R esult * Hepatitis C Screening (06/26/2014) Hepatitis C Screening abstracted Historical Provider HEALTH MAINTENANCE Final Result from Last 3 Months or Most Recently Relevant to Health Maintenance Insurance [employer] Care Teams Senior Catering Sales Manager Relationship Specialty Start Date End Date Geni Arreola MD [address] [place] [phone] PCP - General Internal Medicine 04/24/24
--- OUTSIDE RECORDS SUMMARY | 2025-04-07 10:09 | XMS_ITS | Clinical Summary ---
Author Organization [facility] Address [address] [place] [address] Care Team Providers Care News Agent Name Role Phone Unavailable Primary Care Provider Unavailabl e Medications Medication Sig Dispensed Refills Start Date End Date Status ciprofloxacin (CIPRO) 500 MG tablet Take 1 tablet (500 mg total) by mouth 2 (two) times a day. 10 tablet 0 10/03/2023 Active methenamine (HIPREX) 1 g tablet Take 1 tablet (1 g total) by mouth 2 (two) times a day with meals. 40 tablet 0 10/05/2023 Active Social History Tobacco Use Types Packs/Day Years Used Date Smoking Tobacco: Never Assessed Sex and Gender Information Value Date Recorded Sex Assigned at Not on file Gender Identity Not on file Sexual Orientation Not on file Job Start Date Occupation Industry Not on file Not on file Not on file Last Filed Vital Signs Vital Sign Reading Time Taken Comments Blood Pressure 106/69 09/27/2023 2:00 PM EDT Pulse 60 09/27/2023 2:00 PM EDT Temperature 36.1 C (96.9 F) 09/27/2023 2:00 PM EDT Respiratory Rate - - Oxygen Saturation - - Inhaled Oxygen Concentration - - Weight - - Height - - Body Mass Index - - Plan of Treatment Health Maintenance Due Date Last Done Comments Hepatitis C Screening 1953 Depression Screening 1965 Preventative Health Evaluation 1971 Colon Cancer Screening (Colonoscopy) 1998 Breast Cancer Screening (Mammogram) 2003 Shingrix-Zoster Vaccine (1 of 2) 2003 Fall Risk Assessment 2018 Osteoporosis Screening (DEXA Scan) 2018 DTap / Tdap / Td (2 - Td or Tdap) 04/09/2018 04/09/2008 COVID-19 Vaccine ( season) 2025 09/22/2020, 08/31/2020 Influenza Vaccine (#1) 2025 , 06/14/2022, 03/21/2021, Additional history exists RSV Adult > 60+ Yrs or (1 - 1-dose 75+ series) 2028 Pneumococcal Vaccine Completed 09/12/2022, 10/24/2018, 06/16/2010 Hepatitis B Vaccines Aged Out No long er eligible based on patient's age to complete this topic RSV Ped < 20 months Aged Out No longe r eligible based on patient's age to complete this topic
--- OUTSIDE RECORDS SUMMARY | 2025-04-07 10:09 | XMS_ITS | Encounter Summary ---
Author Organization [facility] Address [address] [place] [address] Care Team Providers Care Wool And Pelt Grader Name Role Phone Geni Arreola MD Primary Care Prov ider Reason for Referral * Consultation (Routine) - Pending Review Specialty Diagnoses / Procedures Referred By Contstephanie t Referred To Contact Behavioral Health Diagnoses Obesity (BMI 30-39.9) Geni Arreola MD [address] [place] [address] Phone: tel: fax: [address] [phone] Phone: tel: fax: Referral ID Status Reason Start Date Expiration Date Visits Requested Visits Authorized [id number] Pending Review Specialty Services Required 04/04/2026 1 1 Reason for Visit * Reason Onset Date Comments Referral 04/03/2025 Encounter Details Date Type Department Care Team ([facility] Contact Info) Description 04/03/2025 Telephone Adult Medicine [address] [phone] Geni Arreola MD [address] [place] [address] Social History Tobacco Use Types Packs/Day Years Used Date Smoking Tobacco: Never Smokeless Tobacco: Never Alcohol Use Standard Drinks/Week Comments Yes 0 [...] for your loved ones. 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 [...] on file Sexual Orientation Not on file documented as of this encounter Progress Notes * Geni Arreola MD - 04/04/2025 8:49 PM EDT New referral was placed. * Gisela Ramos - 04/03/2025 3:32 PM EDT Patient states Dr Almaraz referred her to [facility] - [address] [facility] [phone] Transfer of Care Status: Success [1] Referral Sent to Information: [facility] Outside Provider Messaging They called her and told her they can't help her because they don't take her insurance. Patient states this appointment is needed for a class that she is joining for weight loss through [employer] ?? documented in this encounter Plan of Treatment Upcoming Encounters Date Type Department Care Team (Late st Contact Info) Description 08/05/2025 11:45 AM EST Office Visit Urogynecology [address] [phone] Rosalinda Torrez MD [address] [facility] [address] [place] [address] Scheduled Referrals Name Type Priority Associated Diagnoses Order Schedule Ambulatory referral to Behavioral Health Outpatient Referral Routine Obesity (BMI 30-39.9) 1 Occurrences starting 04/04/2025 until 04/04/2026 documented as of this encounter Visit Diagnoses Diagnosis Obesity (BMI 30-39.9)- Primary documented in this encounter Additional Health Concerns Assessment Noted Time PHQ-9 Depression Total Score: 0 06/24/19 8:08 AM EST A fall risk assessment has been complete d for the patient 06/24/2024 8:08 AM EST documented as of this encounter Care Teams Wool And Pelt Grader Relationship Specialty Start Date End Date Geni Arreola MD [address] [place] [phone] PCP - General Internal Medicine 04/24/24 documented as of this encounter
[2025-04-14 18:25] VITALS: BMI 37.3
== END 2025-04-07 09:47 | disposition home or self-care (01) ==
LOC: HO.ENCR 09:06
PROVIDERS: PCP Internal Medicine; Visit Provider Dietitian, Registered
DX: E66.9 Obesity, unspecified (principal)

== ENCOUNTER → 2025-04-07 09:06 | Outpatient (BNVA) | payer OTHER, SELFPAY | PROVIDERS: PCP Internal Medicine; Visit Provider Dietitian, Registered | DX: Z71.3 Dietary counseling and surveillance (principal); E66.9 Obesity, unspecified | CPT/HCPCS: 97802 ==